=== PATIENT | male | born 1955 | race Caucasian/White ===

== ENCOUNTER 2017-03-13 09:03 | Day surgery (SDC) | payer OTHER ==
[2017-03-13 09:35] VITALS: BMI 37.5
[2017-03-13] MEDS ORDERED: Propofol 10 mg/ml Inj (20 ML) ONE (11:02)
[2017-03-13] MEDS ORDERED: Lactated Ringer's 500 ML IV SCH (11:15)
[2017-03-13] MEDS ORDERED: Lidocaine Hydrochloride 5 ML INJ ONE (11:15)
[2017-03-13 11:47] VITALS: TEMP 98.2; O2SAT 100
[2017-03-13 12:20] VITALS: PULSE 57
[2017-03-13 12:32] VITALS: BP 133/87; RESP 12
[2017-03-13] MEDS ORDERED: Etomidate 20 mg/10ml Inj IV ONE (13:27)
== END 2017-03-13 12:30 | disposition home or self-care (01) ==
LOC: C.ENDO 09:03
PROVIDERS: ATTEND Internal Medicine
DX: Z12.11 Encounter for screening for malignant neoplasm of colon (principal); K64.8 Other hemorrhoids
CPT/HCPCS: 45378; J2704; J7120